=== PATIENT | male | born 1945 | race Caucasian/White ===

== ENCOUNTER 2017-10-30 15:47 | Emergency (ER) | payer OTHER ==
[~2017-10-30] VITALS: Ht 180.3 cm; Wt 88.0 kg
[~2017-10-30 15:47] MED LIST: ADV100/50 IH; SYMBICORT1 AE1 IH
[2017-10-30 15:53] VITALS: Ht 180.3 cm; Wt 88.0 kg
[2017-10-30 17:30] VITALS: BP 134/79
== END 2017-10-30 17:30 | disposition home or self-care (01) ==
LOC: ED 15:47
DX: S40.011A Contusion of right shoulder, initial encounter (principal); S09.90XA Unspecified injury of head, initial encounter; J06.9 Acute upper respiratory infection, unspecified; R55 Syncope and collapse; J44.9 Chronic obstructive pulmonary disease, unspecified; Z85.46 Personal history of malignant neoplasm of prostate; X58.XXXA Exposure to other specified factors, initial encounter; Y93.89 Activity, other specified; Y92.89 Other specified places as the place of occurrence of the external cause; Y99.8 Other external cause status